=== PATIENT | male | born 1955 | race Caucasian/White ===

== ENCOUNTER 2017-11-23 10:22 | Emergency (ER) | payer BC ==
--- NOTE | 2017-11-23 11:12 | ER Document Report ---
ED Medical Screen (RME) - General Chief Complaint: Shortness Of Breath Stated Complaint: SHORTNESS OF BREATH Time Seen by Provider: 11/23/17 11:06 Mode of Arrival: Wheelchair Information source: Patient Notes: 62-year-old male history CHF with recent travel from [place] presents with complaints of shortness of breath. Patient is on furosemide is noted bilateral lower extremity edema I have greeted and performed a rapid initial assessment of this patient. A comprehensive ED assessment and evaluation of the patient, analysis of test results and completion of the medical decision making process will be conducted by additional ED providers. PHYSICAL EXAMINATION: GENERAL: Well-appearing, well-nourished and in no acute distress. HEAD: Atraumatic, normocephalic. EYES: Pupils equal round extraocular movements intact, conjunctiva are normal. ENT: Nares patent NECK: Normal range of motion LUNGS: No respiratory distress Musculoskeletal: Normal range of motion, edema noted NEUROLOGICAL: Normal speech, normal gait. PSYCH: Normal mood, normal affect. SKIN: Warm, Dry, normal turgor, no rashes or lesions noted. TRAVEL OUTSIDE OF THE [place] IN LAST 30 DAYS: No - Related Data Allergies/Adverse Reactions: No Known Allergies Allergy (Verified 11/23/17 11:03) Past Medical History - Social History Frequency of alcohol use: Heavy Drug Abuse: None Renal/ Medical History: Denies: Hx Peritoneal Dialysis Physical Exam - Vital signs Vitals: Temp Pulse Resp BP Pulse Ox 98.6 F 89 18 130/71 H 96 11/23/17 10:33 11/23/17 10:33 11/23/17 10:33 11/23/17 10:33 11/23/17 10:33 Course - Vital Signs Vital signs: Temp Pulse Resp BP Pulse Ox 98.6 F 89 18 130/71 H 96 11/23/17 10:33 11/23/17 10:33 11/23/17 10:33 11/23/17 10:33 11/23/17 10:33
[2017-11-23 12:08] LABS: HEMATOCRIT 35.1 % (37.9-51.0); HEMOGLOBIN 11.7 g/dL (13.5-17.0); MEAN CORPUSCULAR HEMOGLOBIN 31.2 pg (27.0-33.4); MEAN CORPUSCULAR HGB CONC 33.3 g/dL (32.0-36.0); MEAN CORPUSCULAR VOLUME 94 fl (80-97); RED BLOOD COUNT 3.75 10^6/uL (4.35-5.55); RED CELL DISTRIBUTION WIDTH 13.1 % (11.5-14.0); WHITE BLOOD COUNT 6.9 10^3/uL (4.0-10.5)
[2017-11-23 12:27] LABS: ALANINE AMINOTRANSFERASE 49 U/L (21-72); ALBUMIN 4.2 g/dL (3.5-5.0); ALKALINE PHOSPHATASE 94 U/L (38-126); ANION GAP 13 (5-19); ASPARTATE AMINO TRANSFERASE 31 U/L (17-59); BILIRUBIN,DIRECT 0.3 mg/dL (0.0-0.4); BILIRUBIN,TOTAL 0.3 mg/dL (0.2-1.3); BLOOD UREA NITROGEN 35 mg/dL (7-20); CALCIUM 9.4 mg/dL (8.4-10.2); CARBON DIOXIDE 26 mmol/L (22-30); CHLORIDE 99 mmol/L (98-107); CREATINE KINASE 194 U/L (55-170); CREATININE RESULT 1.38 mg/dL (0.52-1.25); GLUCOSE 244 mg/dL (75-110); POTASSIUM 4.6 mmol/L (3.6-5.0); SODIUM 138.4 mmol/L (137-145); TOTAL PROTEIN 6.6 g/dL (6.3-8.2)
--- NOTE | 2017-11-23 12:29 | ER Document Report ---
ED General <SHADI VERA - Last Filed: 11/23/17 16:00> - General Mode of Arrival: Wheelchair Information source: Patient TRAVEL OUTSIDE OF THE [place] IN LAST 30 DAYS: No <RJ AU - Last Filed: 11/24/17 06:05> - General Chief Complaint: Shortness Of Breath Stated Complaint: SHORTNESS OF BREATH Time Seen by Provider: 11/23/17 11:06 Notes: This 62-year-old male patient with past medical history of type 2 diabetes, hypertension, hyperlipidemia, gout, BPH, and pulmonary sarcoidosis. He he is visiting here from the [facility]. They drove down here recently. He was sent from an urgent care where he went complaining of shortness of breath and leg swelling which started sometime yesterday evening. He reports a medication change in which his Lasix was stopped and he was placed on Torsemide 10 mg. He reports 1 week ago they had him reduce the torsemide from 2 pills a day to 1 pill a day. There is no chest pain or chest pressure associated with this shortness of breath. (SHADI VERA) Patient is a 62 year old male with a history of pulmonary sarcoid, CHF, and diabetes presents to the emergency department complaining of shortness of breath and bilateral leg swelling onset yesterday. Patient states he was sent here from urgent care due to his symptoms. Patient currently takes Prednisone and Torsemide. (RJ AU) - Related Data Allergies/Adverse Reactions: No Known Allergies Allergy (Verified 11/23/17 11:03) Past Medical History - General Information source: Patient - Social History Smoking Status: Former Smoker Frequency of alcohol use: Heavy Drug Abuse: None Family History: Reviewed & Not Pertinent Patient has suicidal ideation: No Patient has homicidal ideation: No <RJ AU - Last Filed: 11/24/17 06:05> Review of Systems - Review of Systems Constitutional: No symptoms reported EENT: No symptoms reported Cardiovascular: No symptoms reported Respiratory: See HPI, Short of breath Genitourinary: No symptoms reported Male Genitourinary: No symptoms reported Musculoskeletal: No symptoms reported Skin: No symptoms reported Hematologic/Lymphatic: No symptoms reported Neurological/Psychological: No symptoms reported -: Yes All other systems reviewed and negative <RJ AU - Last Filed: 11/24/17 06:05> Physical Exam - General General appearance: Appears well, Alert In distress: None - HEENT Head: Normocephalic, Atraumatic Eyes: Normal Conjunctiva: Normal Pupils: PERRL - Respiratory Respiratory status: No respiratory distress Chest status: Nontender Breath sounds: Normal - Cardiovascular Rhythm: Regular Heart sounds: Normal auscultation - Abdominal Inspection: Obese Distension: No distension Bowel sounds: Normal Tenderness: Nontender Organomegaly: No organomegaly - Back Back: Normal - Extremities General upper extremity: Normal ROM General lower extremity: Edema - tense pitting edema bilaterally, Normal ROM - Neurological Neuro grossly intact: Yes Cognition: Normal Orientation: AAOx4 [place] Coma Scale Eye Opening: Spontaneous [place] Coma Scale Verbal: Oriented Ne[place] Coma Scale Motor: Obeys Commands [place] Coma Scale Total: 15 Speech: Normal - Psychological Associated symptoms: Normal affect, Normal mood - Skin Skin Temperature: Warm Skin Moisture: Dry Skin Color: Other - chronic pigmentation changes <RJ AU - Last Filed: 11/24/17 06:05> - Vital signs Vitals: Temp Pulse Resp BP Pulse Ox 98.6 F 89 18 130/71 H 96 11/23/17 10:33 11/23/17 10:33 11/23/17 10:33 11/23/17 10:33 11/23/17 10:33 Course - Laboratory Result Diagrams: 11/23/17 11:46 11/23/17 11:46 - Diagnostic Test Radiology reviewed: Image reviewed, Reports reviewed - CTA chest does not show pulmonary emboli, does not show infiltrates, does not show pulmonary vascular congestion or pleural effusion. - EKG Interpretation by Me Rate: Normal - 89 Rhythm: NSR <SHADI VERA - Last Filed: 11/23/17 16:00> - Laboratory Result Diagrams: 11/23/17 11:46 11/23/17 11:46 <RJ AU - Last Filed: 11/24/17 06:05> - Re-evaluation Re-evalutation: 11/23/17 15:12 The patient's lungs were essentially clear on auscultation. The EKG is normal. A troponin was 0.024 least 16 hours after the onset of the shortness of breath sensation. CTA chest was negative for PE, and negative for pulmonary vascular congestion or pleural effusion. The lab work is unremarkable other than some renal insufficiency and a hemoglobin A1c of 8.9 and blood sugar of 244. There is suggestion of urinary tract infection. When I most recently went in to speak with the patient, he was sound asleep on his back with a room air pulse ox of 98%. After he woke up and we were speaking for a while, his pulse ox went to 100% on room air. He does not have any reasons for anxiety identified, however there is no other good explanation for his shortness of breath sensation at this time. He will be asked to increase his torsemide to twice daily for a few days to help get his edema down. 11/23/17 16:06 After the patient left, I realized we had forgotten to discuss the urinalysis which suggested urinary tract infection. He did not complain of these symptoms but I feel it should be treated. I called the , they are on the way home, but will turn around and come back and requested I call the prescription into the [facility] on the corner next to the hospital. I called [facility] with a prescription for Septra DS 1 p.o. twice daily #10 no refill. The urine was cultured. (SHADI VERA) - Vital Signs Vital signs: Temp Pulse Resp BP Pulse Ox 98.6 F 89 15 141/86 H 100 11/23/17 10:33 11/23/17 10:33 11/23/17 15:01 11/23/17 15:00 11/23/17 15:01 - Laboratory Laboratory results interpreted by me: 11/23/17 11/23/17 11/23/17 11:27 11:46 11:46 RBC 3.75 L Hgb 11.7 L Hct 35.1 L Seg Neuts % (Manual) 94 H Lymphocytes % (Manual) 3 L Monocytes % (Manual) 1 L Metamyelocytes % 1 H Abs Lymphs (Manual) 0.3 L BUN 35 H Creatinine 1.38 H Est GFR (Non-Af Amer) 52 L Glucose 244 H Hemoglobin A1c % Creatine Kinase 194 H CK-MB (CK-2) Urine Glucose (UA) 50 H Ur Leukocyte Esterase MODERATE H 11/23/17 11/23/17 11:46 11:46 RBC Hgb Hct Seg Neuts % (Manual) Lymphocytes % (Manual) Monocytes % (Manual) Metamyelocytes % Abs Lymphs (Manual) BUN Creatinine Est GFR (Non-Af Amer) Glucose Hemoglobin A1c % 8.9 H Creatine Kinase CK-MB (CK-2) 10.10 H Urine Glucose (UA) Ur Leukocyte Esterase Discharge <JODYSHADI - Last Filed: 11/23/17 16:00> <RJ AU - Last Filed: 11/24/17 06:05> - Discharge Clinical Impression: Shortness of breath, Peripheral edema Urinary tract infection Qualifiers: Urinary tract infection type: site unspecified Hematuria presence: with hematuria Qualified Code(s): N39.0 - Urinary tract infection, site not specified Condition: Stable Disposition: HOME, SELF-CARE Additional Instructions: Dyspnea, Nonspecific You were evaluated for shortness of breath, or dyspnea. Dyspnea has many causes, and some are more serious than others. Sometimes it's impossible to diagnose the cause of dyspnea with the tests that are available on an emergency basis. Based on our evaluation today, you do not need hospitalization now. We found no evidence of pneumonia, collapsed lung, blood clots in the lung, tumors , or heart failure. Causes of non-specific dyspnea can include asthma or bronchospasm, hyperventilation, emotional distress, heart disease, emphysema, fibrosis of the lung, and stiffness of the chest wall. In healthy individuals with a single episode, it's sometimes reasonable to do nothing but wait to see if the problem occurs again. Additional tests used to evaluate dyspnea can include cardiac stress testing, echocardiography, pulmonary function testing, CAT scan of the chest, bronchoscopy or pulmonary biopsy. Return if shortness of breath persists or worsens, or if you develop chest pain, fever, cough, confusion, or fainting. //////////////////////////////////////////////////////////////////////////////// //////////////////////////////////////////////////////////////////////////////// /////////////////// No clear explanation could be found for your sensation shortness of breath. Your oxygen levels on room air are quite good. For now you can increase your torsemide to 2 pills daily for a few days to get the edema down. Avoid foods with high sodium content. Follow-up with your primary care provider when you return home if you continue to experience the symptoms. RETURN TO THE EMERGENCY ROOM IF ANY NEW OR WORSENING SYMPTOMS. Prescriptions: Sulfamethoxazole/Trimethoprim [Septra-Ds 800-160 mg Tablet] 1 tab PO BID #10 tablet Scribe Attestation: 11/23/17 14:21 I personally performed the services described in the documentation, reviewed and edited the documentation which was dictated to the scribe in my presence, and it accurately records my words and actions. (SHADI VERA) Scribe Documentation - Scribe Written by Adarsh:: Adarsh Haile, 11/23/2017 12:37 acting as scribe for :: Jody <RJ AU - Last Filed: 11/24/17 06:05>
[2017-11-23 12:31] LABS: BASOPHILS % (MANUAL) 0 % (0-2); EOSINOPHILS % (MANUAL) 0 % (0-6); LYMPHOCYTES % (MANUAL) 3 % (13-45); OVALOCYTES SLIGHT; POIKILOCYTOSIS SLIGHT; POLYCHROMASIA SLIGHT; TOTAL CELLS COUNTED 100; TOXIC GRANULATION SLIGHT
[2017-11-23 12:43] LABS: APPEARANCE,URINE CLEAR; BILIRUBIN,URINE NEGATIVE (NEGATIVE); GLUCOSE, URINE 50 mg/dL (NEGATIVE); KETONES,URINE NEGATIVE (NEGATIVE); LEUKOCYTE ESTERASE,URINE MODERATE (NEGATIVE); NITRITE,URINE NEGATIVE (NEGATIVE); PROTEIN,URINE NEGATIVE (NEGATIVE); URINE SPECIFIC GRAVITY 1.009; UROBILINOGEN,URINE NEGATIVE mg/dL (<2.0)
[2017-11-23 12:52] LABS: CREATINE KINASE MB 10.1 ng/mL (<4.55); TROPONIN I 0.024 ng/mL
--- NOTE | 2017-11-23 13:22 | RADIOLOGY REPORT (SQ) ---
EXAM DESCRIPTION: CTA CHEST COMPLETED DATE/TIME: 11/23/2017 1:02 pm REASON FOR STUDY: recent travel, dyspnea, chf COMPARISON: None. TECHNIQUE: CT scan of the chest performed using helical scanning technique with dynamic intravenous contrast injection. Images reviewed with lung, soft tissue and bone windows. Reconstructed coronal and sagittal MPR images reviewed. Additional 3 dimensional post-processing performed to develop Maximal Intensity Projection images (MS P). All images stored on PACS. All CT scanners at this facility use dose modulation, iterative reconstruction, and/or weight based d osing when appropriate to reduce radiation dose to as low as reasonably achievable (ALARA). [facility]: Dose Right [facility]: CareDose [facility]: Dose Right [facility]: Teradose 4D [facility]: Crysalin CONTRAST TYPE AND DOSE: contrast/concentration: Isovue 370.00 mg/ml; Total Contrast Delivered: 86.0 ml; Total Saline Delivered: 100.1 ml Contrast bolus optimized for the pulmonary arteries. Not diagnostic for the aorta. RENAL FUNCTION: Creatinine 1.38 RADIATION DOSE: CT Rad equipment meets quality standard of care and radiation dose reduction techniq ues were employed. CTDIvol: 32.1 - 33.1 mGy. DLP: 1254 mGy-cm. . LIMITATIONS: None. FINDINGS: LUNGS AND PLEURA: No masses, infiltrates, pneumothorax. No pleural effusions, calcificati ons. AORTA AND GREAT VESSELS: No aneurysm. Contrast bolus not optimized for the aorta. HEART: No pericardial effusion. No significant coronary artery calcifications. PULMONARY ARTERIES: No emboli visualized in the main pulmonary arteries or the segmental branches. HILAR AND MEDIASTINAL STRUCTURES: No identified masses or abnormal nodes. Few scattered normal sized mediastinal lymph nodes are identified. HARDWARE: None in the chest. UPPER ABDOMEN: No significant findings. Limited exam. THYROID AND OTHER SOFT TISSUES: No masses. No adenopathy. BONES: No acute or significant finding. 3D MIPS: Confirm above findings. OTHER: Couple small nodular densities are identified in the pericardial fat on the right most consist ent with small lymph nodes. IMPRESSION: NORMAL CTA OF THE CHEST. NO PULMONARY EMBOLI. COMMENT: Quality ID # [id number]: Final reports with documentation of one or more dose reduction techniques (e.g., Automated exposure control, adjustment of the mA and/or kV according to patient size, use of iterative reconstruction technique) TECHNICAL DOCUMENTATION: JOB ID: [id number]- All Rights Reserved
[2017-11-23 15:33] VITALS: BP 141/86
--- NOTE | 2017-11-23 20:29 | EKG REPORT ---
SEVERITY:- NORMAL ECG - SINUS RHYTHM : Confirmed by: Lauryn Gunter MD 23-Nov-2017 20:28:37
== END 2017-11-23 15:39 | disposition home or self-care (01) ==
LOC: ER 10:22
DX: N39.0 Urinary tract infection, site not specified (principal); R06.02 Shortness of breath; R60.9 Edema, unspecified; E11.9 Type 2 diabetes mellitus without complications; I10 Essential (primary) hypertension; E78.5 Hyperlipidemia, unspecified; M10.9 Gout, unspecified; Z87.891 Personal history of nicotine dependence
CPT/HCPCS: 36415; 71275; 80053; 81001; 82550; 82553; 83036; 83880; 84484; 85025; 87086; 87088; 87186; 93005; 93010; 99285